=== PATIENT | male | born 1940 ===

== ENCOUNTER → 2020-01-10 | Outpatient (CLI) | payer MEDICARE, OTHER ==
[~2020-01-10] MED LIST: ALOG25TA2 PO; APIX5TAB PO; BIOT5CAP3 PO; Biotin PO; CALC-175 PO; Co Q-10 PO; Fish oil PO; LOSA50TA14 PO; LOVA20TA2 PO; METF-688 PO; METF500T17 PO; METO-93 PO; MULT-658 PO; ROSU20TA2 PO; Vitamin C PO
== END | disposition home or self-care (01) ==
LOC: CFH 09:58
PROVIDERS: ATTEND Nurse Practitioner Family
DX: I08.3 Combined rheumatic disorders of mitral, aortic and tricuspid valves (principal)
CPT/HCPCS: 93306